=== PATIENT | female | born 1955 | race Caucasian/White ===

== ENCOUNTER → 2018-11-30 | Outpatient (CLI) | payer OTHER | LOC: CAT 13:31 | DX: Z13.6 Encounter for screening for cardiovascular disorders (principal); I25.10 Atherosclerotic heart disease of native coronary artery without angina pectoris; E78.00 Pure hypercholesterolemia, unspecified ==

== ENCOUNTER → 2019-04-25 | Outpatient (CLI) | payer OTHER ==
[~2019-04-25] VITALS: Ht 157.5 cm; Wt 83.9 kg
[~2019-04-25] MED LIST: CHILDREN'S ASPI81 M1 PO; CYMBALTA60 MG PO; LIPITOR10 MG PO; NORVASC5 M1 PO; PROTONIX40 M1 PO; SYNTHROID100 MC1 PO; VITAMIN B122500 MCG PO; VITAMIN D35000 UNIT PO
--- NOTE | 2019-04-26 15:07 | PATH ---
[facility] [address] [place] [address] PATHOLOGY RPT PROCEDURE Name: ENDYMARY EZRA Room #: REG GISELL Reid#: [id number] Admission: 04/25/19 Date of : 51 Discharge: Report #: [id number] Path Case #: [id number] [facility] Accession Number: [id number] . 01 Material submitted: . stomach - BIOPSY GASTRITIS R/O H. PYLORI . 01 Clinical history: . Pre-OP DX: Reflux, dysphagia, Hx polyps Post-OP DX: Gastritis, hiatal hernia . 02 Diagnosis: Gastric mucosa, gastritis, rule out H. pylori, endoscopic biopsy: - Moderate reactive gastropathy. - Negative for intestinal metaplasia or atrophy. - Negative for Helicobacter pylori (properly-controlled immunohistochemical stain performed). . (IUV:mml; 04/26/2019) QL 04/26/2019 1316 Local . 02 Electronically signed: . Laya Randhawa MD, Pathologist NPI- [id number] . 01 Gross description: . Received in formalin labeled "Mary Banda, BX gastritis," are 4 segments of restrepo soft tissue measuring 1.0 x 0.8 x 0.3 cm in aggregate dimensions and ranging from 0.3 to 0.7 cm in maximum dimension. The specimen is submitted entirely in cassette A1. (TSD; 04/25/2019) TOB/TOB 04/25/2019 1924 Local . 02 Pathologist provided ICD-10: K31.9 . 02 CPT . 993689, V21068 Specimen Comment: A courtesy copy of this report has been sent to Specimen Comment: [phone], . Specimen Comment: Report sent to / DR ALCAZAR Performed at: [address] [id number] MD Kristopher Valencia MD Phone: [phone] Performed at: [address] [address] PATHOLOGY RPT PROCEDURE Name: MARY BANDA Room #: REG GISELL Reid#: [id number] Admission: 04/25/19 Date of : 51 Discharge: Report #: [id number] Path Case #: [id number] [address] [place] [id number] MD Laya Randhawa MD Phone: [phone]
--- NOTE | 2019-04-28 07:29 | P ---
[facility] [place] [address] PROCEDURE REPORT Name: KADEN SCHUMACHER Room #: REG [facility]#: [id number] Admission: 04/25/19 Attend Phys: Watson Vital MD Discharge: Date of : 51 Report #: [id number] THIS REPORT FOR: //name// CC: Watson Rosenthal MD DATE OF SERVICE: 04/25/2019 BRIEF HISTORY: The patient is a 63-year-old woman with increasing reflux symptoms with regurgitation and burning in the back of his throat in spite of twice daily PPI. She also has experienced intermittent solid food dysphagia. PREOPERATIVE DIAGNOSIS: Persistent reflux symptoms, on therapy. POSTOPERATIVE DIAGNOSES: 1. A 3 cm sliding type hiatus hernia. 2. Mild erythematous gastritis. 3. Focal area of ____ healed esophagitis. MEDICATIONS: Deep sedation with propofol per Anesthesia. SPECIMEN: Biopsies of gastritis. ESTIMATED BLOOD LOSS: 3 mL. PROCEDURES: EGD with biopsy and Casas dilation. FINDINGS: Prior to propofol sedation, procedure of upper endoscopy discussed with the patient as well as potential risks and its complications. She indicates she understands and desires to proceed. DESCRIPTION OF PROCEDURE: With the patient in left lateral decubitus position, the Olympus video endoscope was inserted in the cervical esophagus under direct vision without difficulty. Examination of this organ through its entire length revealed normal esophageal mucosa down the squamocolumnar junction. At the squamocolumnar junction, the Z line was noted to be intact. There was one focal area where the Z line was intact. It was slightly erythematous and this may be a focal area of healing esophagitis. Active esophagitis in the form of ulcers, erosions were not seen. No strictures or masses were seen. Intermittently, a 3 cm sliding type hiatus hernia was seen. Scope was advanced in the stomach, was examined on end view as well as retroflexed views. There was a pattern of erythema in the antrum, but the mucosa was intact without ulcers or erosions. Multiple biopsies obtained of the gastritis. Upon retroflexion, no mass lesions were seen. The pylorus, duodenal bulb, and postbulbar duodenal sweep were inspected and noted to be unremarkable. At that point, the scope was slowly [facility] [address] [place] [address] PROCEDURE REPORT Name: ENDYKADEN EZRA Room #: REG [facility].#: [id number] Admission: 04/25/19 Attend Phys: Watson Vital MD Discharge: Date of : 51 Report #: [id number] withdrawn and careful circumferential views confirmed the above findings. The patient tolerated the procedure well. Following the procedure, she was dilated with passage of 52-[place] Casas dilator due to symptoms of dysphagia. There was no resistance. CONDITION OF THE PATIENT UPON DISCHARGE: Following procedure, the patient drowsy and prepared for colonoscopy. INSTRUCTIONS TO THE PATIENT AND FAMILY AT THE TIME OF DISCHARGE: We will have her continue twice daily pantoprazole. We will add 300 mg of ranitidine at bedtime. We will have her return to see me in followup in the office. If her symptoms persist, she may benefit from antireflux procedure as it sounds as if she is continuing to have reflux symptoms. In addition, advised weight loss. Also, she should return on an as needed basis for dilation of esophagus based on symptoms of recurrent dysphagia. <ELECTRONICALLY SIGNED> By: Watson Vital MD 04/28/19 0729 [id number] [id number] Watson Vital MD /nt
--- NOTE | 2019-04-28 07:29 | P ---
[facility] [place] [address] PROCEDURE REPORT Name: KADEN SCHUMACHER Room #: REG [facility]#: [id number] Admission: 04/25/19 Attend Phys: Watson Vital MD Discharge: Date of : 51 Report #: [id number] THIS REPORT FOR: //name// CC: Watson Rosenthal MD BRIEF HISTORY: The patient is a 63-year-old woman with history of colon polyps for high risk screening colonoscopy. PREOPERATIVE DIAGNOSIS: High risk screening colonoscopy. POSTOPERATIVE DIAGNOSIS: High risk screening colonoscopy due to history of colon polyps. MEDICATIONS: Deep sedation with propofol per anesthesia. SPECIMEN: None. ESTIMATED BLOOD LOSS: None. PROCEDURE: Colonoscopy to cecum and terminal ileum. FINDINGS: Prior to propofol sedation, procedure of colonoscopy discussed with the patient as well as potential risks and its complications. She indicates she understands and desires to proceed. DESCRIPTION OF PROCEDURE: With the patient in left lateral decubitus position, digital examination was completed, which revealed no abnormalities. Subsequently, the Olympus video colonoscope was introduced in the rectum, advanced under direct vision to the cecum. This was done with some difficulty as she had a tortuous redundant colon. However, with splinting of the abdomen and use of stiffening wire with the scope, we were able to reach the cecum, was identified by the ileocecal valve and the appendiceal orifice. I was able to advance the tip of the scope briefly into the mouth of the ileocecal valve and see villous pattern, but could not deeply intubate the scope into the ileum. At that point, the scope was slowly withdrawn and careful circumferential views were obtained. Upon slow withdrawal of the scope, the prep was good. The mucosa was within normal limits, normal vascular pattern, normal light reflex. No mucosal lesions or inflammatory lesions were seen. The mucosa was normal throughout the entire colon. The scope was withdrawn in the rectum and upon retroflexion, no abnormalities were seen. Scope was withdrawn. The patient tolerated the procedure well. CONDITION OF THE PATIENT UPON DISCHARGE: Following procedure, the patient was drowsy, arousable, conversant and will be discharged home when fully ambulatory. [address] [address] PROCEDURE REPORT Name: KADEN SCHUMACHER [id number] Admission: 04/25/19 Attend Phys: Watson Vital MD Discharge: Date of : 51 Report #: [id number] INSTRUCTIONS TO THE PATIENT AND FAMILY AT THE TIME OF DISCHARGE: No polyps were removed today. She had one diminutive polyp 5 years ago. At this point, recommend she will return for followup colonoscopy in 10 years. She is to follow high fiber diet. If there is any change in her bowel habits or new symptoms such as bleeding or family history, she should return for colonoscopy at that time. She will return to care of Dr. Vince Rosenthal and return to see me as needed. Last colonoscopy was in 10/2011. Withdrawal time from cecum was 12 minutes 34 seconds. <ELECTRONICALLY SIGNED> By: Watson Vital MD 04/28/19 0729 [id number] Watson Vital MD /nt
== END | disposition home or self-care (01) ==
LOC: GI 08:23
DX: Z12.11 Encounter for screening for malignant neoplasm of colon (principal); Z86.010 Personal history of colon polyps; K63.89 Other specified diseases of intestine; K31.9 Disease of stomach and duodenum, unspecified; R13.12 Dysphagia, oropharyngeal phase; K44.9 Diaphragmatic hernia without obstruction or gangrene; I10 Essential (primary) hypertension; E78.00 Pure hypercholesterolemia, unspecified; F32.9 Major depressive disorder, single episode, unspecified; K21.9 Gastro-esophageal reflux disease without esophagitis; E03.9 Hypothyroidism, unspecified; Z90.49 Acquired absence of other specified parts of digestive tract; Z98.890 Other specified postprocedural states; Z79.82 Long term (current) use of aspirin; Z79.899 Other long term (current) drug therapy
CPT/HCPCS: 43239; 43450; G0105; 62110; 62900

== ENCOUNTER → 2019-08-29 | Outpatient (CLI) | payer OTHER | LOC: ULTRA 14:13 | DX: M79.605 Pain in left leg (principal); M79.89 Other specified soft tissue disorders ==

== ENCOUNTER 2021-05-04 14:59 | Emergency (ER) | payer OTHER ==
[~2021-05-04] VITALS: Ht 157.5 cm; Wt 83.9 kg
[2021-05-04 15:09] VITALS: BP 176/100
[2021-05-04] MEDS ORDERED: AUGMENTIN 875-1 EACH PO (16:16)
[2021-05-04] MEDS ORDERED: DIFLUCAN150 MG PO (16:20)
== END 2021-05-04 16:17 | disposition home or self-care (01) ==
LOC: ER 14:59
DX: J32.0 Chronic maxillary sinusitis (principal); Z20.822 Contact with and (suspected) exposure to COVID-19; J32.1 Chronic frontal sinusitis; K21.9 Gastro-esophageal reflux disease without esophagitis; E03.9 Hypothyroidism, unspecified; F32.9 Major depressive disorder, single episode, unspecified; I10 Essential (primary) hypertension; Z90.710 Acquired absence of both cervix and uterus; Z90.49 Acquired absence of other specified parts of digestive tract; Z79.899 Other long term (current) drug therapy

== ENCOUNTER → 2021-07-16 | Outpatient (CLI) | payer OTHER ==
[~2021-07-16] MED LIST changes: +AUGMENTIN 875-1 EACH PO; +DIFLUCAN150 MG PO
== END ==
LOC: MRI 09:21
PROVIDERS: ATTEND Otolaryngology Plastic Surgery within the Head & Neck
DX: I67.82 Cerebral ischemia (principal); R43.9 Unspecified disturbances of smell and taste; R25.2 Cramp and spasm